=== PATIENT | female | born 1970 | race Caucasian/White ===

== ENCOUNTER 2017-05-04 15:32 | Emergency (ER) | payer SELFPAY ==
[~2017-05-04 15:32] MED LIST: AMOXIL500 MG PO; CELEXA40 MG PO; MEP50TAB PO; PR25 PO; PRILOSEC OTC20 MG PO
[2017-05-04 15:54] LABS: BASOPHILS 0.4 %; BASOPHILS ABSOLUTE 0.03 10/3/uL (0.0-0.16); EOSINOPHILS 1.4 %; HEMOGLOBIN 12.5 g/dL (12.0-16.0); IMMATURE GRANULOCYTES 0.1 %; IMMATURE GRANULOCYTES ABSOLUTE 0.01 10/3/uL (0.0-0.11); LYMPHOCYTES 30.6 %; LYMPHOCYTES ABSOLUTE 2.13 10/3/uL (0.67-4.30); MEAN CORPUS HGB CONC 33.3 g/dL (32.0-36.0); MEAN PLATELET VOLUME 10.1 fL (9.2-13.0); MONOCYTES ABSOLUTE 0.28 10/3/uL (0.21-1.20); NEUTROPHILS 63.5 %; NEUTROPHILS ABSOLUTE 4.42 10/3/uL (2.02-8.40)
[2017-05-04 15:56] LABS: ER CBC TAT 0 Hrs 05 Mins; HEMATOCRIT 37.5 % (36.0-48.0); MANUAL DIFF NO %; MEAN CORPUSCULAR HEMOGLOB 35.7 pg (26.0-34.0); MEAN CORPUSCULAR VOLUME 107.1 fL (80-100); PLATELET COUNT 238 10/3/uL (150-400); RBC DISTRIBUTION WIDTH 25.6 % (12.0-16.0)
[2017-05-04 16:03] LABS: ASCORBIC ACID (UR NOT ORDER) NEG (NEG); BILIRUBIN, URINE SMALL (NEG); ER URINALYSIS TAT 0 Hrs 12 Mins; KETONE, URINE NEGATIVE (NEG); LEUKOCYTE ESTERASE(NOT OR TRACE (NEG); NITRITE (URINE) NEG (NEG); WBC (NOT ORDERED) (RFLEX) 7 (0-5)
[2017-05-04 16:09] LABS: A/G RATIO 0.8 (0.7-1.9); ALBUMIN 2.8 G/DL (3.5-5.0); ALKALINE PHOSPHATASE 237 U/L (45-117); CALCIUM, SERUM 8.4 MG/DL (8.5-10.4); CREATININE 0.63 MG/DL (0.55-1.02); GFR AFRICAN AMERICAN 126 ML/MIN (>=60); GFR NON AFRICAN AMERICAN 108 ML/MIN (>=60); GLOBULIN 3.3 G/DL (2.5-4.1); GLUCOSE, SERUM 124 MG/DL (60-99); POTASSIUM, SERUM 3.4 MMOL/L (3.5-5.3); SGOT(AST) 249 U/L (5-40); SGPT(ALT) 111 U/L (5-65); SODIUM, SERUM 140 MMOL/L (135-148); TOTAL BILIRUBIN 1.2 MG/DL (0-1.2); TOTAL PROTEIN 6.1 G/DL (6.0-8.5)
[2017-05-04 16:10] LABS: BUN (BLOOD UREA NITROGEN) 3 MG/DL (6-23); CHLORIDE, SERUM 100 MMOL/L (96-112); CO2 (CARBON DIOXIDE) 26 MMOL/L (24-34)
== END 2017-05-04 19:13 | disposition home or self-care (01) ==
LOC: ER 15:32
PROVIDERS: Emergency Medicine
DX: K86.1 Other chronic pancreatitis (principal); F10.10 Alcohol abuse, uncomplicated; F17.200 Nicotine dependence, unspecified, uncomplicated; Z87.442 Personal history of urinary calculi; Z88.5 Allergy status to narcotic agent; Z91.040 Latex allergy status; Z79.899 Other long term (current) drug therapy
CPT/HCPCS: 74176; 80053; 81001; 83690; 84703; 85025; 96374; 96375; 99284; C9113; J2405; J3411